=== PATIENT | female | born 1950 | race Caucasian/White ===

== ENCOUNTER 2017-04-25 13:01 | Emergency (ER) | payer OTHER ==
[~2017-04-25] VITALS: Ht 147.3 cm; Wt 98.7 kg
[~2017-04-25 13:01] MED LIST: AMBIEN CR12.5 MG PO; AMITRIPTYLINE H10 MG PO; BENICAR20 MG PO; BENICAR40 MG PO; CALTRATE 6001 TABLET PO; CELECOXIB100 MG PO; ENABLEX15 MG PO; GABAPENTIN100 MG PO; GLUCOTEN CAPLE1 EACH PO; IRBESARTAN300 MG PO; KEFLEX500 MG PO; OMEPRAZOLE40 M1 PO; PREVACID30 MG PO; Percocet 7.5/325,End PO; Prevacid PO; SIMVASTATIN40 MG PO; TRAMADOL HCL50 MG PO; VYTORIN 10/41 TABLET PO; XANAX0.5 MG PO; Xanax PO
[2017-04-25 15:24] VITALS: BP 138/60
== END 2017-04-25 15:25 | disposition home or self-care (01) ==
LOC: EME 13:01
DX: R07.0 Pain in throat (principal); R13.10 Dysphagia, unspecified; K21.9 Gastro-esophageal reflux disease without esophagitis; I10 Essential (primary) hypertension; E78.5 Hyperlipidemia, unspecified; Z96.659 Presence of unspecified artificial knee joint
CPT/HCPCS: 71020; 87651 90; 99281; 99284

== ENCOUNTER 2017-05-10 05:01 | Emergency (ER) | payer OTHER ==
[~2017-05-10] VITALS: Ht 147.3 cm; Wt 101.3 kg
[2017-05-10 05:50] LABS: HEMATOCRIT 38.9 % (36.0-46.0); MCH 31.8 PG (29.0-34.0); MCHC 34.2 G/DL (30.0-36.0); MCV 93.1 FL (83-99); MEAN PLAT.VOLUME 10.7 uM^3 (9.5-12.4); PLATELET COUNT 175 K/uL (156-360); RBC DIS.WIDTH-CV 12.3 % (11.8-14.6); RBC DIS.WIDTH-SD 42.5 % (39-53); RED BLOOD COUNT 4.18 M/uL (3.80-5.20); WHITE BLOOD COUNT 7.6 K/uL (4.1-10.2)
[2017-05-10 06:00] LABS: CHLORIDE 106 mEq/L (99-109); POTASSIUM 4.2 mEq/L (3.7-5.4); SODIUM 143 mEq/L (136-147)
[2017-05-10 06:03] LABS: GLUCOSE 108 mg/dL (70-99)
[2017-05-10 06:04] LABS: ANION GAP 12 MEQ/L (2-14)
[2017-05-10 06:05] LABS: TOTAL BILIRUBIN 0.6 mg/dL (0.0-1.0)
[2017-05-10 06:06] LABS: ALKALINE PHOSPHATASE 109 IU/L (3-129); GFR ESTIMATE (CALCULATED) > 59 mL/min/
[2017-05-10 06:07] LABS: UREA NITROGEN (BUN) 15 mg/dL (9-23)
[2017-05-10 06:10] LABS: LIPASE 34 U/L (1.0-51.0)
[2017-05-10 06:26] LABS: ADD MIUA? YES; BILIRUBIN NEGATIVE; BLOOD MODERATE; COLOR STRAW ((YELLOW)); GLUCOSE (STRIP) NEGATIVE; KETONES NEGATIVE; LEUKOCYTES SMALL; NITRITE NEGATIVE; PROTEIN (STRIP) NEGATIVE; SPECIFIC GRAVITY 1.006 (1.000-1.030); UROBILINOGEN 0.2 MG/DL (0.2-1.0)
[2017-05-10 06:35] LABS: BACTERIA RARE /HPF; EPITHELIAL CELLS RARE /HPF; MUCUS NONE SEEN /LPF; UCUL ADDED? YES; WHITE BLOOD CELLS 15-20 /HPF (0-5)
[2017-05-10] MEDS ORDERED: BACTRIM,SEPT1 TABLET PO (06:53)
[2017-05-10] MEDS ORDERED: ZOFRAN ODT4 MG PO (06:53)
[2017-05-10] MEDS ORDERED: NAPROXEN500 MG PO (06:53)
[2017-05-10 07:11] VITALS: BP 139/78
== END 2017-05-10 07:12 | disposition home or self-care (01) ==
LOC: EME → EDBD 05:01 → EME 07:12
PROVIDERS: Physician Assistant
DX: N23 Unspecified renal colic (principal); R30.0 Dysuria; R35.0 Frequency of micturition; R10.9 Unspecified abdominal pain; E78.5 Hyperlipidemia, unspecified; I10 Essential (primary) hypertension; K21.9 Gastro-esophageal reflux disease without esophagitis; D64.9 Anemia, unspecified; Z87.891 Personal history of nicotine dependence
CPT/HCPCS: 74176; 80053; 81003; 83690; 85027; 87077; 87086; 87186; 99281; 99285; J1885; J2405; J3010; J7030

== ENCOUNTER → 2017-06-24 | Outpatient (CLI) | payer OTHER ==
[~2017-06-24] VITALS: Ht 147.3 cm; Wt 101.2 kg
[~2017-06-24] MED LIST changes: +ATIVAN1 MG PO; +BACTRIM,SEPT1 TABLET PO; +NAPROXEN500 MG PO; +ZOFRAN ODT4 MG PO
[2017-06-24 13:28] LABS: BASE EXCESS 3.5 mEq/L (-3 to +3); BICARBONATE 28.5 mEq/L (22-26); METHEMOGLOBIN 1.4 % (0-1.5); PCO2 44 mm Hg (35-45); PO2 73 mm Hg (80-100); pH 7.42 (7.35-7.45)
[2017-06-24 13:29] LABS: COMMENTS - BLOOD GASES A+C+; FI02 21 %; MODE ROOM AIR; SITE R RAD
== END | disposition home or self-care (01) ==
LOC: AMB 12:15
PROVIDERS: Anesthesiology
PROC: 0DB58ZX Excision of Esophagus, Via Natural or Artificial Opening Endoscopic, Diagnostic (ICD-10-PCS; principal; 2017-06-24)
DX: K31.7 Polyp of stomach and duodenum (principal); R13.10 Dysphagia, unspecified; I10 Essential (primary) hypertension; K21.9 Gastro-esophageal reflux disease without esophagitis; E78.00 Pure hypercholesterolemia, unspecified; Z86.73 Personal history of transient ischemic attack (TIA), and cerebral infarction without residual deficits; Z87.891 Personal history of nicotine dependence
CPT/HCPCS: 36600; 82803; 88305; 93005; J3010

== ENCOUNTER 2018-01-08 21:08 | Inpatient (IN) | payer OTHER ==
[~2018-01-08] VITALS: Ht 142.2 cm; Wt 99.9 kg
[2018-01-08 22:29] LABS: HEMATOCRIT 36.2 % (36.0-46.0); HEMOGLOBIN 12.8 G/DL (11.9-15.5); MCH 32.6 PG (29.0-34.0); MCHC 35.4 G/DL (30.0-36.0); MCV 92.1 FL (83-99); PLATELET COUNT 172 K/uL (156-360); RBC DIS.WIDTH-CV 11.8 % (11.8-14.6); RED BLOOD COUNT 3.93 M/uL (3.80-5.20)
[2018-01-08 22:40] LABS: ALBUMIN 3.9 g/dL (3.2-4.8); CHLORIDE 103 mEq/L (99-109); POTASSIUM 3.9 mEq/L (3.7-5.4); SODIUM 142 mEq/L (136-147)
[2018-01-08 22:42] LABS: GLUCOSE 115 mg/dL (70-99)
[2018-01-08 22:43] LABS: APPEARANCE CLEAR ((CLEAR)); BILIRUBIN NEGATIVE; BLOOD MODERATE; COLOR YELLOW ((YELLOW)); GLUCOSE (STRIP) NEGATIVE; KETONES NEGATIVE; LEUKOCYTES SMALL; NITRITE NEGATIVE; PROTEIN (STRIP) NEGATIVE; SPECIFIC GRAVITY 1.008 (1.000-1.030); UROBILINOGEN 0.2 MG/DL (0.2-1.0)
[2018-01-08 22:44] LABS: TOTAL BILIRUBIN 0.9 mg/dL (0.0-1.0)
[2018-01-08 22:46] LABS: ALKALINE PHOSPHATASE 100 IU/L (3-129); CREATININE 0.9 mg/dL (0.6-1.3); GFR ESTIMATE (CALCULATED) > 59 mL/min/
[2018-01-08 22:47] LABS: UREA NITROGEN (BUN) 14 mg/dL (9-23)
[2018-01-08 22:48] LABS: AST (GOT) 12 IU/L (2-34)
[2018-01-08 22:49] LABS: ALT (GPT) 9 IU/L (3-49)
[2018-01-08 22:54] LABS: BACTERIA 2+ /HPF; EPITHELIAL CELLS RARE /HPF; MUCUS TRACE /LPF; RED BLOOD CELLS 0-5 /HPF (0-5); UCUL ADDED? YES; WHITE BLOOD CELLS 30-40 /HPF (0-5)
[2018-01-09] VITALS (7 sets, daily range): BP systolic 86–108; BP diastolic 50–64
[2018-01-09 05:36] LABS: HEMATOCRIT 32.1 % (36.0-46.0); HEMOGLOBIN 10.9 G/DL (11.9-15.5); MCH 32.2 PG (29.0-34.0); PLATELET COUNT 159 K/uL (156-360); RBC DIS.WIDTH-CV 11.9 % (11.8-14.6); RBC DIS.WIDTH-SD 41.6 % (39-53); RED BLOOD COUNT 3.38 M/uL (3.80-5.20); WHITE BLOOD COUNT 9.1 K/uL (4.1-10.2)
[2018-01-09 06:04] LABS: ALBUMIN 2.9 G/DL (3.2-4.8); ALKALINE PHOSPHATASE 73 IU/L (3-129); ALT (GPT) 6 IU/L (3-49); AST (GOT) 10 IU/L (2-34); CHLORIDE 107 MEQ/L (99-109); CREATININE 0.8 MG/DL (0.6-1.3); GFR ESTIMATE (CALCULATED) > 59 mL/min/; GLUCOSE 121 mg/dL (70-99); POTASSIUM 3.8 MEQ/L (3.7-5.4); SODIUM 143 MEQ/L (136-147); TOTAL BILIRUBIN 0.8 MG/DL (0.0-1.0); TOTAL PROTEIN 5.1 G/DL (6.4-8.3); UREA NITROGEN (BUN) 11 mg/dL (9-23)
[2018-01-10] VITALS (7 sets, daily range): BP systolic 89–132; BP diastolic 54–72
[2018-01-10 07:11] LABS: HEMATOCRIT 32.1 % (36.0-46.0); HEMOGLOBIN 10.7 G/DL (11.9-15.5); MCH 31.8 PG (29.0-34.0); MCHC 33.3 G/DL (30.0-36.0); MCV 95.5 FL (83-99); PLATELET COUNT 138 K/uL (156-360); RBC DIS.WIDTH-CV 11.9 % (11.8-14.6); RBC DIS.WIDTH-SD 41.4 % (39-53); RED BLOOD COUNT 3.36 M/uL (3.80-5.20); WHITE BLOOD COUNT 7.4 K/uL (4.1-10.2)
[2018-01-10 07:40] LABS: CHLORIDE 108 MEQ/L (99-109); CREATININE 0.8 MG/DL (0.6-1.3); GFR ESTIMATE (CALCULATED) > 59 mL/min/; GLUCOSE 111 mg/dL (70-99); POTASSIUM 3.9 MEQ/L (3.7-5.4); SODIUM 142 MEQ/L (136-147); UREA NITROGEN (BUN) 8 mg/dL (9-23)
[2018-01-11 07:40] VITALS: BP 116/70
[2018-01-11 16:23] VITALS: BP 136/68
[2018-01-12 00:11] VITALS: BP 117/57
[2018-01-12 08:37] VITALS: BP 126/72
[2018-01-12] MEDS ORDERED: FLAGYL500 MG PO (10:38)
[2018-01-12] MEDS ORDERED: ULTRAM50 MG PO (10:38)
[2018-01-12] MEDS ORDERED: ZOFRAN ODT4 MG PO (10:38)
[2018-01-12] MEDS ORDERED: AUGMENTIN875 MG PO (10:38)
== END 2018-01-12 13:26 | disposition home health service (06) | DRG 392 ==
LOC: EME 21:08 → EDOF 01-09 02:10 → 2EAST 01-09 02:10 → ENRESERV 01-09 02:15 → 2EAST 01-09 03:29
PROVIDERS: Emergency Medicine; Hospitalist; Internal Medicine; Internal Medicine Gastroenterology
DX: K57.20 Diverticulitis of large intestine with perforation and abscess without bleeding (principal); N39.0 Urinary tract infection, site not specified; I48.0 Paroxysmal atrial fibrillation; F32.9 Major depressive disorder, single episode, unspecified; E66.01 Morbid (severe) obesity due to excess calories; K59.00 Constipation, unspecified; I95.9 Hypotension, unspecified; B96.20 Unspecified Escherichia coli [E. coli] as the cause of diseases classified elsewhere; G47.00 Insomnia, unspecified; I11.0 Hypertensive heart disease with heart failure; I50.9 Heart failure, unspecified; E78.5 Hyperlipidemia, unspecified; G89.4 Chronic pain syndrome; K21.9 Gastro-esophageal reflux disease without esophagitis; G89.29 Other chronic pain; F41.9 Anxiety disorder, unspecified; Z96.652 Presence of left artificial knee joint; E78.00 Pure hypercholesterolemia, unspecified; Z80.0 Family history of malignant neoplasm of digestive organs; Z88.5 Allergy status to narcotic agent; Z86.73 Personal history of transient ischemic attack (TIA), and cerebral infarction without residual deficits; Z68.42 Body mass index [BMI] 45.0-49.9, adult; Z90.49 Acquired absence of other specified parts of digestive tract; Z90.710 Acquired absence of both cervix and uterus; Z87.891 Personal history of nicotine dependence
CPT/HCPCS: 74177; 80048; 80053; 81003; 85027; 87077; 87086; 87186; 94799; 99281; 99285; J1644; J2405; J2543; J3010; J7030; J7050

== ENCOUNTER 2018-01-14 11:29 | Inpatient (IN) | payer OTHER ==
[~2018-01-14] VITALS: Ht 142.2 cm; Wt 103.5 kg
[~2018-01-14 11:29] MED LIST changes: +AUGMENTIN875 MG PO; +FLAGYL500 MG PO; +ULTRAM50 MG PO
[2018-01-14 12:42] LABS: BASOPHIL (%) 0.4 % (0-1); EOSINOPHIL (%) 2.9 % (0-5); EOSINOPHIL COUNT 0.2 K/uL (0-0.3); HEMATOCRIT 32.1 % (36.0-46.0); HEMOGLOBIN 10.9 G/DL (11.9-15.5); IMMATURE GRANULOCYTE (%) 0.4 % (0.0-0.7); LYMPHOCYTE (%) 19.1 % (15-42); MCV 94.1 FL (83-99); MONOCYTE (%) 9.1 % (3-12); MONOCYTE COUNT 0.5 K/uL (0-0.8); NEUTROPHIL (%) 68.1 % (45-76); NEUTROPHIL COUNT 3.5 K/uL (1.8-6.4); RBC DIS.WIDTH-CV 11.9 % (11.8-14.6); RBC DIS.WIDTH-SD 41.1 % (39-53); RED BLOOD COUNT 3.41 M/uL (3.80-5.20); WHITE BLOOD COUNT 5.2 K/uL (4.1-10.2)
[2018-01-14 12:43] LABS: INTER. NORMALIZED RATIO 1.2; PLATELET COUNT 183 K/uL (156-360)
[2018-01-14 12:45] LABS: PTT 26.8 SEC (25-37)
[2018-01-14 12:50] LABS: CHLORIDE 105 mEq/L (99-109); SODIUM 145 mEq/L (136-147)
[2018-01-14 12:51] LABS: GLUCOSE 108 mg/dL (70-99)
[2018-01-14 12:55] LABS: CREATININE 0.8 mg/dL (0.6-1.3); GFR ESTIMATE (CALCULATED) > 59 mL/min/
[2018-01-14 12:56] LABS: UREA NITROGEN (BUN) 10 mg/dL (9-23)
[2018-01-14 12:57] LABS: TROP-I INTERPRETATION NEGATIVE; TROPONIN-I < 0.01 ng/mL (0.0-0.30)
[2018-01-14] MEDS ORDERED: IRBESARTAN300 MG PO (14:13)
[2018-01-14 18:19] VITALS: BP 108/63
[2018-01-14 18:40] LABS: TROP-I INTERPRETATION NEGATIVE; TROPONIN-I < 0.01 ng/mL (0.0-0.30)
[2018-01-14 20:36] VITALS: BP 122/85
[2018-01-15] VITALS: BP 112/59
[2018-01-15 04:00] VITALS: BP 112/58
[2018-01-15 07:23] LABS: HEMATOCRIT 30.9 % (36.0-46.0); HEMOGLOBIN 10.1 G/DL (11.9-15.5); MCH 31.5 PG (29.0-34.0); MCHC 32.7 G/DL (30.0-36.0); MCV 96.3 FL (83-99); PLATELET COUNT 178 K/uL (156-360); RBC DIS.WIDTH-CV 11.9 % (11.8-14.6); RED BLOOD COUNT 3.21 M/uL (3.80-5.20); WHITE BLOOD COUNT 4.4 K/uL (4.1-10.2)
[2018-01-15 07:46] LABS: ALKALINE PHOSPHATASE 100 IU/L (3-129); ALT (GPT) 32 IU/L (3-49); AST (GOT) 30 IU/L (2-34); CHLORIDE 104 MEQ/L (99-109); CREATININE 0.8 MG/DL (0.6-1.3); GFR ESTIMATE (CALCULATED) > 59 mL/min/; GLUCOSE 103 mg/dL (70-99); POTASSIUM 3.9 MEQ/L (3.7-5.4); SODIUM 144 MEQ/L (136-147); TOTAL BILIRUBIN 0.2 MG/DL (0.0-1.0); TOTAL PROTEIN 5.3 G/DL (6.4-8.3); UREA NITROGEN (BUN) 10 mg/dL (9-23)
[2018-01-15 08:10] VITALS: BP 122/61
[2018-01-15 16:16] VITALS: BP 123/65
[2018-01-15 19:58] VITALS: BP 117/64
[2018-01-16] VITALS: BP 128/64
[2018-01-16 03:58] VITALS: BP 138/67
[2018-01-16 08:00] VITALS: BP 135/63
[2018-01-16] MEDS ORDERED: ZOLPIDEM TARTRAT5 MG PO (11:36)
[2018-01-16] MEDS ORDERED: LORAZEPAM0.5 MG PO (11:36)
[2018-01-16 11:39] VITALS: BP 125/62
[2018-01-16] MEDS ORDERED: TYLENOL325 M2 PO (11:39)
[2018-01-16 15:33] VITALS: BP 137/66
[2018-01-16 20:00] VITALS: BP 150/67
[2018-01-17 00:18] VITALS: BP 123/71
[2018-01-17 04:01] VITALS: BP 119/65
[2018-01-17 08:05] VITALS: BP 139/63
[2018-01-17 11:12] VITALS: BP 120/76
[2018-01-17] MEDS ORDERED: LOPRESSOR25 MG PO (14:34)
== END 2018-01-17 15:38 | disposition home health service (06) | DRG 189 ==
LOC: EME 11:29 → EDOF 14:25 → 5SOUTH 14:25 → ENRESERV 14:27 → 5SOUTH 17:42 → ENPENDDIS 01-17 14:35 → 5SOUTH 01-17 15:38
PROVIDERS: Emergency Medicine; Internal Medicine
PROC: 5A09357 Assistance with Respiratory Ventilation, Less than 24 Consecutive Hours, Continuous Positive Airway Pressure (ICD-10-PCS; principal; 2018-01-15)
DX: J96.01 Acute respiratory failure with hypoxia (principal); I48.0 Paroxysmal atrial fibrillation; G47.33 Obstructive sleep apnea (adult) (pediatric); I11.0 Hypertensive heart disease with heart failure; I50.9 Heart failure, unspecified; I27.20 Pulmonary hypertension, unspecified; R41.82 Altered mental status, unspecified; T40.4X5A Adverse effect of other synthetic narcotics, initial encounter; E78.5 Hyperlipidemia, unspecified; K21.9 Gastro-esophageal reflux disease without esophagitis; E66.01 Morbid (severe) obesity due to excess calories; F32.9 Major depressive disorder, single episode, unspecified; F41.9 Anxiety disorder, unspecified; G89.29 Other chronic pain; R59.0 Localized enlarged lymph nodes; Z96.652 Presence of left artificial knee joint; Z68.43 Body mass index [BMI] 50.0-59.9, adult; Z86.73 Personal history of transient ischemic attack (TIA), and cerebral infarction without residual deficits; Z87.891 Personal history of nicotine dependence; Z88.5 Allergy status to narcotic agent; Z91.19 Patient's noncompliance with other medical treatment and regimen
CPT/HCPCS: 71045; 71275; 80048; 80053; 81003; 83605; 84484; 85025; 85027; 85610; 85730; 87040; 93005; 93306; 94640; 94640 76; 94660; 94799; 97530 GO; 99202; 99281; 99285; G8978 GP CI; G8979 GP CH; J1650; J2405